=== PATIENT | male | born 1975 | race Caucasian/White ===

== ENCOUNTER → 2019-08-28 14:48 | Outpatient (CLI) | payer OTHER, SELFPAY ==
[2019-08-30 14:37] LABS: Parathyroid Hormone Intact 44 pg/mL (15-65)
== END ==
PROVIDERS: Visit Provider Urology
DX: N20.0 Calculus of kidney (principal)
CPT/HCPCS: 36415; 83970

== ENCOUNTER → 2020-09-12 15:30 | Outpatient (CLI) | payer OTHER, SELFPAY ==
--- NOTE | 2020-09-12 15:34 | XR_ITS ---
PROCEDURE: XR KUB CLINICAL INDICATION: kidney stone Left kidney stone COMPARISON: No exams were available for comparison FINDINGS: There are at least 2 stones of the left kidney 1 in the mid polar region at 4 mm and 1 in the lower pole at 3 mm. There are multiple left-sided pelvic calcifications which may be due to phleboliths. There is mild thoracolumbar curvature convex right. No definite ureteral calculus. Suture lines are present in the right mid abdominal region. There is a small cortical defect of the left femoral neck at 10 mm. IMPRESSION: Left nephrolithiasis Dictated by: Garth Morris MD 09/12/2020 15:57 Garth Morris MD in [facility] 09/12/2020 15:57
== END ==
PROVIDERS: Visit Provider Urology
DX: N20.0 Calculus of kidney (principal)
CPT/HCPCS: 74018